=== PATIENT | female | born 1970 | race Caucasian/White ===

== ENCOUNTER 2018-01-05 14:05 | Emergency (ER) | payer SELFPAY ==
[2018-01-05] MEDS ORDERED: cloNIDine 0.1 MG Tab PO ONE (14:15)
--- NOTE | 2018-01-05 14:16 | EDM.PDOC ---
ED HPI GENERAL MEDICAL PROBLEM - General Stated Complaint: HIGH BP Time Seen by Provider: 01/05/18 14:05 Source of Information: Reports: Patient History Limitations: Reports: No Limitations - History of Present Illness INITIAL COMMENTS - FREE TEXT/NARRATIVE: 47 y.o.w.f was seen at the clinic for UTI symptoms. At that time. Her bP was 220/110. pt was transferred to the ed for further car. Pt was 220/110 on arrival. Pt denies any neurological symptoms, no N/V/D, no dizziness. Pt said, she is in her usual state of health. No BP issues in the past. BP 220/110 Pulse 83 RR 16 Pulse ox 100% on RA Temp 36.8 Onset Date: 01/05/18 Onset Time: 07:00 Duration: Hour(s):, Constant Location: Reports: Generalized Quality: Reports: Other (no symptoms) Severity: Mild Improves with: Reports: Rest Worsens with: Reports: Movement Context: Reports: Other Associated Symptoms: Reports: No Other Symptoms - Related Data Allergies Allergy/AdvReac Type Severity Reaction Status Date / Time No Known Allergies Allergy Verified 01/05/18 15:47 Home Meds: Home Meds Aspirin 81 mg PO DAILY 01/05/18 [History] Calcium Carbonate [Calcium] 500 mg PO DAILY 01/05/18 [History] Cyanocobalamin (Vitamin B-12) [Vitamin B-12] 1,000 mcg PO DAILY 01/05/18 [ History] Losartan/Hydrochlorothiazide [Losartan-HCTZ 50-12.5 MG] 1 each PO DAILY #5 tablet 01/05/18 [Rx] Multivitamin [Multivitamins] 1 tab PO DAILY 01/05/18 [History] ED ROS GENERAL - Review of Systems Review Of Systems: See Below Constitutional: Reports: No Symptoms HEENT: Reports: No Symptoms Respiratory: Reports: No Symptoms Cardiovascular: Reports: No Symptoms Endocrine: Reports: No Symptoms GI/Abdominal: Reports: No Symptoms : Reports: No Symptoms Musculoskeletal: Reports: No Symptoms Skin: Reports: No Symptoms Neurological: Reports: No Symptoms Psychiatric: Reports: No Symptoms Hematologic/Lymphatic: Reports: No Symptoms Immunologic: Reports: No Symptoms ED EXAM, GENERAL - Physical Exam Exam: See Below Exam Limited By: No Limitations General Appearance: Alert, WD/WN, No Apparent Distress, Anxious Eye Exam: Bilateral Eye: Normal Inspection Nose: Normal Inspection Throat/Mouth: Normal Inspection Head: Atraumatic, Normocephalic Neck: Normal Inspection, Supple, Non-Tender, Full Range of Motion Respiratory/Chest: No Respiratory Distress, Lungs Clear, Normal Breath Sounds Cardiovascular: Normal Peripheral Pulses, Regular Rate, Rhythm, No Edema, No Gallop, No JVD, No Murmur, No Rub GI/Abdominal: Normal Bowel Sounds, Soft, Non-Tender, No Organomegaly, No Abnormal Bruit, No Mass, Pelvis Stable (Female) Exam: Deferred Rectal (Female) Exam: Deferred Back Exam: Normal Inspection, Full Range of Motion Extremities: Normal Inspection, Normal Range of Motion, Non-Tender, No Pedal Edema, Normal Capillary Refill Neurological: Alert, Oriented, CN II-XII Intact, Normal Cognition, Normal Gait, No Motor/Sensory Deficits Psychiatric: Normal Affect, Normal Mood Skin Exam: Warm, Dry, Intact, Normal Color, No Rash Lymphatic: No Adenopathy Course - Vital Signs Text/Narrative:: 47 y.o.w.f was seen at the clinic for UTI symptoms. At that time. Her bP was 220/110. pt was transferred to the ed for further car. Pt was 220/110 on arrival. Pt denies any neurological symptoms, no N/V/D, no dizziness. Pt said, she is in her usual state of health. No BP issues in the past. BP 220/110 Pulse 83 RR 16 Pulse ox 100% on RA Temp 36.8 PE; 47 y.o.w.f with high BP UA: pos for UTI, UDS was neg Impression: Hypertensive urgency Tx: Clonidine, Losarton Reexam: Improved, BP was 155/89 on D/C Plan: D/C with instructions Last Recorded V/S: Last Vital Signs Temp 37.1 C 01/05/18 14:05 Pulse 88 01/05/18 14:05 Resp 16 01/05/18 14:05 BP 169/92 H 01/05/18 15:40 Pulse Ox 100 01/05/18 14:05 - Orders/Labs/Meds Labs: Laboratory Tests 01/05/18 Range/Units 12:45 Urine Opiates Screen Negative (NEGATIVE) Ur Oxycodone Screen Negative (NEGATIVE) Ur Propoxyphene Screen Negative (NEGATIVE) Ur Barbituates Screen Negative (NEGATIVE) Ur Tricyclics Screen Negative (NEGATIVE) Ur Phencyclidine Scrn Negative (NEGATIVE) Ur Amphetamine Screen Negative (NEGATIVE) Urine MDMA Screen Negative (NEGATIVE) U Benzodiazepines Scrn Negative (NEGATIVE) U Cocaine Metab Screen Negative (NEGATIVE) U Marijuana (THC) Screen Negative (NEGATIVE) Meds: Medications Discontinued Medications Generic Name Dose Route Start Last Admin Trade Name Freq PRN Reason Stop Dose Admin Clonidine HCl 0.1 mg 01/05/18 14:15 01/05/18 14:19 Catapres PO 01/05/18 14:16 0.1 mg ONETIME ONE Administration Losartan Potassium 50 mg 01/05/18 15:34 01/05/18 15:40 Cozaar PO 01/05/18 15:35 50 mg ONETIME ONE Administration Departure - Departure Time of Disposition: 15:56 Disposition: Home, Self-Care 01 Condition: Good Clinical Impression: HTN (hypertension) Qualifiers: Hypertension type: essential hypertension Qualified Code(s): I10 - Essential ( primary) hypertension - Discharge Information Prescriptions: Losartan/Hydrochlorothiazide [Losartan-HCTZ 50-12.5 MG] 1 each PO DAILY #5 tablet Instructions: Hypertension, [id number] Referrals: Brandee Gross [employer] [Primary Care Provider] - Forms: ED Department Discharge Additional Instructions: Please take Losarton/HCTZ daily if your Systolic BP is above 140. If below, do not take the medicaion. Please f/u with your PMD this Wednesdays. please check your BP daily, come back if your symptoms get worse acutely
[2018-01-05] MEDS ORDERED: Losartan 50 MG Tab PO ONE (15:34)
== END 2018-01-05 16:15 | disposition home or self-care (01) ==
LOC: FB.ED 14:05
DX: I10 Essential (primary) hypertension (principal); I16.0 Hypertensive urgency; Z79.82 Long term (current) use of aspirin; Z79.899 Other long term (current) drug therapy
CPT/HCPCS: 80305; 99283; A9270